=== PATIENT | female | born 1995 ===

== ENCOUNTER 2019-02-20 10:44 | Emergency (ER) | payer SELFPAY ==
[2019-02-20 10:52] VITALS: BMI 28.1
[2019-02-20] MEDS ORDERED: Sodium Chloride 0.9% 1,000 ML IV STA ×2 (11:38→13:15)
--- NOTE | 2019-02-20 11:47 | ED PDOC ---
HPI: Abdomen Time Seen by Provider: 02/20/19 11:08 Chief Complaint (Nursing): Abdominal Pain Chief Complaint (Provider): vomiting History Per: Patient History/Exam Limitations: no limitations Onset/Duration Of Symptoms: Days Current Symptoms Are (Timing): Still Present Associated Symptoms: Nausea, Vomiting, Other (dizziness) Additional Complaint(s): Pt. is a 23 year old healthy Female who reports she awoke yesterday with dizziness, described as room spinning, which is made worse with movement of head or walking. Pt. reports associated nausea and multiple episodes of nonbloody, nonbilious vomiting. Pt. denies any abdominal pain. Pt. reports she felt well thursday, went out for dinner (seafood) and had 3 alcoholic drinks. She reports f eeling well when she got home and symptoms started the following morning. Past Medical History Vital Signs: Last Vital Signs Temp 98.5 F 02/20/19 10:52 Pulse 60 02/20/19 10:52 Resp 18 02/20/19 10:52 BP 111/70 02/20/19 10:52 Pulse Ox 100 02/20/19 10:52 - Medical History PMH: No Chronic Diseases - Family History Family History: States: Unknown Family Hx - Home Medications Home Medications: Ambulatory Orders Medication Instructions Recorded Meclizine [Antivert] 25 mg PO BID PRN #15 tab 02/20/19 Ondansetron ODT [Zofran ODT] 8 mg PO BID PRN #10 odt 02/20/19 - Allergies Allergies/Adverse Reactions: Allergies Allergy/AdvReac Type Severity Reaction Status Date / Time No Known Allergies Allergy Verified 02/20/19 10:58 Review of Systems Constitutional: Negative for: Fever, Chills Cardiovascular: Negative for: Chest Pain, Light Headedness Respiratory: Negative for: Cough, Shortness of Breath Gastrointestinal: Positive for: Nausea, Vomiting. Negative for: Abdominal Pain, Diarrhea Genitourinary Female: Negative for: Dysuria Neurological: Positive for: Dizziness Physical Exam - Physical Exam Appears: Positive for: Well, Non-toxic Head Exam: Positive for: ATRAUMATIC Skin: Positive for: Normal Color, Warm, Dry Eye Exam: Positive for: Normal appearance, EOMI, PERRL. Negative for: Nystagmus ENT: Positive for: Normal ENT Inspection Neck: Positive for: Normal Cardiovascular/Chest: Positive for: Regular Rate, Rhythm Respiratory: Positive for: Normal Breath Sounds Gastrointestinal/Abdominal: Positive for: Normal Exam, Soft. Negative for: Tenderness, Guarding Back: Positive for: Normal Inspection Neurological/Psych: Positive for: Awake, Alert, Oriented - Laboratory Results Result Diagrams: 02/20/19 11:40 02/20/19 11:40 - ECG O2 Sat by Pulse Oximetry: 100 Medical Decision Making Medical Decision Making: IV NS given cbc, cmp IV Reglan PO antivert Reassessment, nausea improved, no further vomiting however still feels "dizzy", worse with attempting to ambulate. 2nd L NS given. CT head ordered. Reassessment, pt. feeling much better, no further n/v. Pt. reports dizziness completely resolved. Pt. is ambulating in ED with steady gait. Discharge exam, abd. is soft/nt. Disposition - Clinical Impression Clinical Impression: Vertigo - Patient ED Disposition Is Patient to be Admitted: No Counseled Patient/Family Regarding: Studies Performed, Diagnosis, Need For Followup, Rx Given - Disposition Referrals: [facility] [Outside] Disposition: Routine/Home Disposition Time: 15:42 Condition: STABLE Additional Instructions: Rest, increase fluids. Return to ED if worse Prescriptions: Meclizine [Antivert] 25 mg PO BID PRN #15 tab PRN Reason: Dizziness Ondansetron ODT [Zofran ODT] 8 mg PO BID PRN #10 odt PRN Reason: Nausea/Vomiting Instructions: Vertigo (a Type of Dizziness) (DC) Forms: [id number] ([employer]ajik), [facility] ED School/Work Excuse
[2019-02-20 11:52] LABS: BASO % 0.3 % (0.0-2.0); EOS % 0.4 % (0.0-4.0); HEMOGLOBIN 13.3 g/dL (12.0-16.0); LYMPH # 1.4 K/uL (1.0-4.3); LYMPH % 12.4 % (20.0-40.0); MEAN CELL VOLUME 88.7 fl (81.0-99.0); MEAN CORPUSCULAR HGB CONC 33.9 g/dL (33.0-37.0); MEAN PLATELET VOLUME 8.5 fl (7.2-11.7); MONO # 0.4 K/uL (0.0-0.8); MONO % 3.7 % (0.0-10.0); NEUT # 9.4 K/uL (1.8-7.0); NEUT % 83.2 % (50.0-75.0); RBC 4.44 Mil/uL (3.80-5.20); WHITE BLOOD COUNT 11.4 K/uL (4.8-10.8)
[2019-02-20 12:13] LABS: ALB/GLOB RATIO 1.3 (1.0-2.1); ALT/SGPT 24 U/L (9-52); AST/SGOT 28 U/L (14-36); BLOOD UREA NITROGEN 16 mg/dl (7-17); GFR NON-AFRICAN AMERICAN > 60
[2019-02-20 14:51] VITALS: RESP 16; TEMP 98.1
--- NOTE | 2019-02-20 15:13 | CT ---
Date of service: 02/20/2019 PROCEDURE: CT HEAD WITHOUT CONTRAST. HISTORY: dizzy, vomiting COMPARISON: None available. TECHNIQUE: Axial computed tomography images were obtained through the head/brain without intravenous contrast. Radiation dose: Total exam DLP = 830.64 mGy-cm. This CT exam was performed using one or more of the following dose reduction techniques: Automated exposure control, adjustment of the mA and/or kV according to patient size, and/or use of iterative reconstruction technique. FINDINGS: HEMORRHAGE: No intracranial hemorrhage. BRAIN: No mass effect or edema. No atrophy or chronic microvascular ischemic changes. VENTRICLES: Unremarkable. No hydrocephalus. CALVARIUM: Unremarkable. PARANASAL SINUSES: Unremarkable as visualized. No significant inflammatory changes. MASTOID AIR CELLS: Unremarkable as visualized. No inflammatory changes. OTHER FINDINGS: None. IMPRESSION: No acute intracranial pathology.
[2019-02-20 16:04] VITALS: BP 106/72; PULSE 62; O2SAT 99
== END 2019-02-20 16:04 | disposition home or self-care (01) ==
LOC: H.ER 10:44
DX: R42 Dizziness and giddiness (principal)
CPT/HCPCS: 70450; 80053; 81025; 85025; 96361; 96374; 96375; 99283; J1885; J2765; J7030